=== PATIENT | male | born 1980 | race Caucasian/White ===

== ENCOUNTER 2018-06-05 17:28 | Emergency (ER) | payer OTHER, SELFPAY ==
[2018-06-05 17:46] VITALS: BP 130/89; PULSE 98; RESP 16; TEMP 37.1; O2SAT 97
[2018-06-05] MEDS: FAMOTIDINE 20 MG/50 ML PIGGYBACK 200 MG IV (17:57)
[2018-06-05] MEDS: methylPREDNISolone 125 MG/2 ML VIAL IV (17:57)
[2018-06-05] MEDS: SODIUM CHLORIDE 0.9% 1,000 ML 1000 ML IV (17:57)
--- NOTE | 2018-06-05 18:03 | ED.ALLEREA ---
HPI - Allergic Reaction General Chief complaint: Allergic Reaction Stated complaint: anaphalaxis Time Seen by Provider: 06/05/18 17:33 Source: patient Mode of arrival: ambulatory Limitations: no limitations History of Present Illness HPI narrative: The patient's has strep throat. His throat felt a little itchy, he took a single dose of amoxicillin. He was on the [place] when this occurred. Fortunately he was with a physician friend of his. After taking the amoxicillin, he felt warm. He had event developed a rash. He developed chest tightness and weakness. A call was put out her medications. His friend dosed him with EpiPen, Benadryl and 30 mg of prednisone. His friend told him a 1 point he is having difficulty finding his pulse, although the patient was conscious the entire time. He had been started about 2 hr prior to his arrival here. At the time my evaluation, he has very little rash. He is alert, oriented. He denies airway tightness, difficulty breathing or difficulty swallowing, no chest pain and no wheezing. Related Data Previous Rx's Medication Instructions Recorded epinephrine [EpiPen 2-Igor] 0.3 mg IM Q10M PRN #2 each 06/05/18 prednisone 60 mg PO DAILY 5 Days #15 tab 06/05/18 Allergies Allergy/AdvReac Type Severity Reaction Status Date / Time bupropion [From Wellbutrin] Allergy Verified 06/05/18 17:52 Penicillins Allergy Anaphylaxis Verified 06/05/18 17:52 Review of Systems Review of Systems All systems reviewed & are unremarkable except as noted in HPI and below Constitutional Denies chills, Denies fever(s), Denies headache(s), Denies lethargy and Denies weakness Eyes Denies change in vision and Denies irritation ENT Ears, Nose, Mouth, and Throat: Denies dizziness, Denies headache(s), Denies throat swelling and Denies tongue swelling Cardiovascular Reports diaphoresis, Denies syncope, Denies rapid heart rate, Denies pedal edema and Reports dyspnea Respiratory Denies cough and Reports dyspnea Gastrointestinal Gastrointestinal: Denies abdominal pain, Denies change in bowel habits, Denies diarrhea, Denies nausea and Denies vomiting Musculoskeletal Denies joint swelling, Denies muscle weakness, Denies numbness and Denies tingling Integumentary/Breasts Denies pruritus, Reports erythema, Reports rash and Denies wounds Neurologic Denies confusion, Denies dizziness, Denies syncope, Denies headache(s), Denies numbness, Denies tingling and Denies weakness Psychiatric Denies anxiety, Denies confusion and Denies depression Allergic/Immunologic Denies throat swelling and Denies tongue swelling [facility] Medical History Anaphylaxis (Acute) Social History Smoking Status: Current some day smoker Exam Initial Vital Signs Initial Vital Signs: Vital Signs Temperature 98.7 F 06/05/18 17:46 Pulse Rate 98 H 06/05/18 17:46 Respiratory Rate 16 06/05/18 17:46 Blood Pressure 130/89 06/05/18 17:46 Pulse Oximetry 97 06/05/18 17:46 Const General: cooperative and well developed Nutritional Appearance: well nourished Orientation: alert, awake, oriented x3 and not confused HENMT Head: normocephalic and atraumatic Nose: external nose normal Face and sinus: face symmetric Mouth: oral mucosae normal and moist mucous membranes Throat: posterior oropharynx normal, tonsils normal and uvula midline Eyes Conjunctivae: conjunctivae normal Sclera: sclerae normal Neck Neck: No JVD Thyroid: thyroid normal Chest Chest: normal inspection of the chest Resp Effort & Inspection: normal respiratory effort and able to speak in complete sentences Auscultation: clear to auscultation bilaterally, no rales, no rhonchi and no wheezes Cardio Rate: regular rate Rhythm: regular rhythm Heart Sounds: no click, no gallops, no murmurs and no rubs Pulses: normal peripheral pulses GI Inspection: non-distended Palpation: soft, no hepatosplenomegaly, No guarding, No pulsatile mass and No tender Auscultation: normal bowel sounds Back/Spine/Pelvis Back: No back tenderness Cervical Spine: cervical ROM normal Thoracic/Lumbar Spine: thoracic and lumbar spine normal to inspection Skin General: erythema (Slight erythema in the anterior neck, and the upper back. No other rash at this time. The extensive erythema he apparently had earlier has resolved.) Neuro General: alert, oriented x3, gait normal and no focal motor deficits Speech: speech normal Extrem General: full ROM, no pedal edema and no calf tenderness Course Orders Ordered: Discontinued Medications Famotidine (Pepcid) 20 mg in 50 mls @ 200 mls/hr IV NOW ONE Stop: 06/05/18 17:47 Last Infusion: 06/05/18 18:42 Dose: 0 mls/hr Admin: 06/05/18 17:57 Dose: 200 mls/hr Sodium Chloride (Normal Saline 0.9%) 1,000 mls @ 1,000 mls/hr IV BOLUS ONE Stop: 06/05/18 18:32 Last Infusion: 06/05/18 20:05 Dose: 0 mls/hr Admin: 06/05/18 17:57 Dose: 1,000 mls/hr Methylprednisolone (Solu-Medrol 125 Mg Vial) 125 mg IV NOW ONE Stop: 06/05/18 17:34 Last Admin: 06/05/18 17:57 Dose: 125 mg Vital Signs - 8 hr 06/05/18 17:46 06/05/18 18:30 06/05/18 19:12 Temperature 98.7 F Pulse Rate 98 H 84 80 Respiratory Rate 16 16 14 Blood Pressure 130/89 Blood Pressure [Right Arm] 132/90 127/80 Pulse Oximetry 97 97 97 06/05/18 19:35 Temperature Pulse Rate 85 Respiratory Rate 15 Blood Pressure Blood Pressure [Right Arm] 130/78 Pulse Oximetry 98 MDM - Allergic Reaction MDM Narrative Medical decision making narrative: The patient received prednisone, epinephrine and Benadryl prior to arrival. He has been given Solu-Medrol and Pepcid after arrival. He has shown little evidence of any type of allergic reaction that time he arrived here. He has been asymptomatic throughout the ER stay. He will be discharged on prednisone daily for the next 5 days. His chart has been labeled penicillin allergy. Discharge Plan Departure Patient Disposition: Home Clinical Impression: Anaphylaxis Discharge Date/Time: 06/05/18 20:05 Interventions: ED Discharge Assessment Last Done: 06/05/18 20:05 Instructions: DI for Adverse Drug Reaction -- Allergic Activity Restrictions/Additional Instructions: Prednisone 60 mg daily for 5 days. Benadryl every 4 hr if you have recurrence of itching. You will be prescribed EpiPen, for future use, uses medially at the onset of allergic reactions. Prescriptions: New prednisone 20 mg tablet 60 mg PO DAILY 5 Days Qty: 15 RF: 0 epinephrine [EpiPen 2-Igor] 0.3 mg/0.3 mL auto-injector 0.3 mg IM Q10M PRN (Reason: anaphylaxis) Qty: 2 RF: 1
[2018-06-05 18:30] VITALS: BP 132/90; PULSE 84; RESP 16; O2SAT 97
[2018-06-05 19:12] VITALS: BP 127/80; PULSE 80; RESP 14; O2SAT 97
[2018-06-05 19:35] VITALS: BP 130/78; PULSE 85; RESP 15; O2SAT 98
== END 2018-06-05 20:05 | disposition home or self-care (01) ==
PROVIDERS: Emergency Provider Emergency Medicine
DX: T88.6XXA Anaphylactic reaction due to adverse effect of correct drug or medicament properly administered, initial encounter (principal); T36.0X5A Adverse effect of penicillins, initial encounter
CPT/HCPCS: 36591; 96361; 96374; 96375; 99283; 99284; J2930